=== PATIENT | female | born 1965 | race African-American/Black ===

== ENCOUNTER 2023-05-22 11:41 | Emergency (ER) | payer OTHER ==
[2023-05-22 12:26] VITALS: BP 115/98; PULSE 85; RESP 20; TEMP 98; BMI 30.4
== END 2023-05-22 13:17 | disposition home or self-care (01) ==
LOC: JERFT 11:41
DX: Z04.1 Encounter for examination and observation following transport accident (principal); V79.50XA Passenger on bus injured in collision with unspecified motor vehicles in traffic accident, initial encounter; Y92.410 Unspecified street and highway as the place of occurrence of the external cause
CPT/HCPCS: 99282-25